=== PATIENT | female | born 1970 ===

== ENCOUNTER 2017-09-13 14:00 | Inpatient (IN) | payer OTHER ==
[~2017-09-13] VITALS: Ht 167.6 cm; Wt 82.1 kg
[2017-09-13] MEDS ORDERED: SYNTHROID75 MCG PO (16:46)
[2017-09-16] MEDS ORDERED: DOCUSATE SODIU100 MG PO (06:41)
[2017-09-16] MEDS ORDERED: OXYC1TAB9 PO (06:42)
== END 2017-09-16 13:52 | DRG 743 ==
LOC: O/R 09-15 05:55 → SURG 09-15 07:00 → SURG-SUITE 09-15 13:24 → SURG 09-15 14:00 → SURG-SUITE 09-16 13:52
PROVIDERS: Obstetrics & Gynecology
PROC: 0UT74ZZ Resection of Bilateral Fallopian Tubes, Percutaneous Endoscopic Approach (ICD-10-PCS; 2017-09-15)
PROC: 0UT24ZZ Resection of Bilateral Ovaries, Percutaneous Endoscopic Approach (ICD-10-PCS; 2017-09-15)
PROC: 0UT94ZZ Resection of Uterus, Percutaneous Endoscopic Approach (ICD-10-PCS; principal; 2017-09-15 07:00)
DX: D25.1 Intramural leiomyoma of uterus (principal); D25.2 Subserosal leiomyoma of uterus; N72 Inflammatory disease of cervix uteri